=== PATIENT | male | born 1955 | race Caucasian/White ===

== ENCOUNTER 2025-02-18 12:01 | Outpatient (CLI) | payer MEDICAID, SELFPAY ==
--- NOTE | 2025-02-18 06:45 | DI.RAD_ITS ---
Exam(s) XR PAIN CLINIC LUMBAR SP 2V EXAM: XR PAIN CLINIC LUMBAR SP 2V CLINICAL HISTORY: DX: Lumbar Radiculopathy. TECHNIQUE: Fluoroscopy was provided for the referring physician for guidance with performing pain cl inic injection procedure. COMPARISON: No exams were available for comparison FINDINGS: Please see procedure note for details. Fluoro time: 84.1 seconds RADIATION DOSE DELIVERED: Ka,r=62.5 mGy
[2025-02-18 12:42] VITALS: BP 138/87; PULSE 77; RESP 20; TEMP 36.7; O2SAT 97
--- NOTE | 2025-02-18 13:02 | PDOC.PAIN ---
Date of service: 02/18/25 Time of Service: 13:35 Pain Managment Procedure Note Procedure Note Procedure Note: Lumbar Transforaminal Epidural Steroid Injection ? Location: RIGHT L5 and S1 ? Pre-procedure Diagnosis: M54.17-Radiculopathy, lumbosacral region M54.16 Radiculopathy, lumbar region ? Post-procedure Diagnosis:? The same as above ? Sedation:? none ? Estimated blood loss:? less than 2 cc ? Surgeon:? 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 ? Procedure Detail:?? The procedure and potential risks were explained to the patient and informed written consent was obtained. The patient was escorted to the procedure room and placed in the prone position. Pillows were utilized for proper positioning and comfort. Time out was performed in the procedure room with nursing staff confirming the patient's identity, procedure to be performed, allergies, and any blood thinning or anti-platelet medications. The patient's lower back was prepped with ChloraPrep and draped in a sterile fashion. Sterile gloves were used, a face mask was worn, and new single dose vials of all medications were used with the top being swabbed with alcohol and given time to dry prior to withdrawal of medication. A right-sided oblique fluoroscopic view was obtained, with visualization of L5. Lidocaine 1% was used to anesthetize the skin. The tip of a 22-gauge, Quincke needle was advanced toward the 6 o'clock position of the superior pedicle at the target level.? It was advanced just under the pedicle to the neural foramen L5-S1. Correct needle placement was confirmed through review of the fluoroscopy. Next, following negative aspiration, 1cc's of Omnipaque 240 contrast was injected under live fluoroscopy which showed good flow throughout the epidural space and no evidence of vascular flow or flow into adjacent compartments. Next, following negative aspiration, . 40mg Depo-Medrol and 0.5ml of 0.5% bupivacaine was injected. The needle was gently removed.? The procedure was also performed in the same fashion at S1.? The patient tolerated the procedure well.? Permanent images saved and recorded. Plan:? Follow up prn PAIN: PRE PROCEDURE 10 POST PROCEDURE 010 COMMENT: Difficult access would consider repeat with caudal and catheter to the right. Coding Conscious Sedation used for procedure: No CPT Codes: Transforaminal Lumbar/Sacral (includes fluoro) - 22799 ([id number] ~G) Transforaminal Lumbar/Sacral (includes Fluoro) each add'l - 70087 ([id number] ~G) Additional Codes: Date of Service (50894) Date of service: 02/18/25
[2025-02-18 13:10] VITALS: PULSE 69; O2SAT 93
[2025-02-18 13:20] VITALS: PULSE 78; O2SAT 96
[2025-02-18] MEDS: methylPREDNISolone ACETATE 40 MG/ML VIAL IJ (13:30)
[2025-02-18] MEDS: Bupivacaine 0.5% Pres-Free 10 ML VIAL IJ (13:31)
[2025-02-18] MEDS: Omnipaque 240 MG/ML 50 ML BTL IJ (13:32)
[2025-02-18] MEDS: Nerve Block Tray 1 EACH MC (13:50)
== END 2025-02-18 12:02 | disposition home or self-care (01) ==
LOC: PC 12:01
PROVIDERS: PCP Physician Assistant Medical; Visit Provider Anesthesiology Pain Medicine
DX: M54.50 Low back pain, unspecified (principal); M54.16 Radiculopathy, lumbar region; M54.17 Radiculopathy, lumbosacral region
CPT/HCPCS: 64483; 64484; 72100; J0665; J1010; Q9967